=== PATIENT | male | born 1975 | race Caucasian/White ===

== ENCOUNTER 2024-07-15 00:30 | Emergency (ER) | payer BC, SELFPAY ==
[2024-07-15 00:33] VITALS: BP 158/125
[2024-07-15 00:49] VITALS: BMI 35.0
--- NOTE | 2024-07-15 01:30 | ED.SKININJ ---
HPI-Injury
General
Chief Complaint: Skin Surface Trauma
Source: patient and family
Exam Limitations: none
Time Seen by Provider: 07/15/24 01:07
Nursing documentation reviewed up to this point in time: agreed with
History of Present Illness-Injury
Initial Injury comments:
48-year-old male cut his left ring finger on a mandolin while cutting cucumbers tonight. No other injuries sustained. Last tetanus is unknown
Past History
Past History
ED Past Medical History: Cancer (appendix), GERD, Hypercholesterolemia, Other (disc herniation) and Other (nephrolithiasis)
ED Past Surgical History: Appendectomy, Bowel resection, Orthopedic and Other
Social History
Tobacco: Smoker
Alcohol: None
Drug: Marijuana
Personal:
Living: with family
Employment: Employed
Family History
Family History: Other (Sr. with congenital heart disease brother with a pacemaker)
Skin Exam
Avulsion
Left Fourth Finger:
Type of avulsion injury: superfical
Any active bleeding?: low grade venous oozing
Distal skin color and temperature: normal-warm & good color
Normal distal neurovascular exam: Yes
Phy Exam
General Physical Exam
General Presentation: well appearing and no apparent distress
Pulmonary Exam
Pulmonary Exam: no respiratory distress
Neurological Exam
Neurological Exam: alert and oriented x3
Skin Exam
Skin Exam: normal color, warm/dry and other (Flap avulsion to the distal point of the left ring finger. No sutures necessary as flap is missing)
Psychiatric Exam
Psychiatric Exam: normal mood/affect
Course
Orders/Labs/Results
Orders:
Orders
07/15/24 01:27
Tetanus/Diphth/Acelpertussis [Adacel] 0.5 ml IM .ONCE ONE
Vital Signs
Initial and Last Documented VS:
Initial Vital Signs
Temp Pulse Resp BP Pulse Ox
98.0 F 105 17 158/125 100
07/15/24 00:33 07/15/24 00:33 07/15/24 00:33 07/15/24 00:33 07/15/24 00:33
Last Documented Vital Signs
Temp Pulse Resp BP Pulse Ox
98.0 F 105 17 158/125 100
07/15/24 00:33 07/15/24 00:33 07/15/24 00:33 07/15/24 00:33 07/15/24 00:33
*Critical Care Note
Total Time (30-74mins, 75-104mins- exclusive of procedures): Not Applicable
ED Attending Note
-
Portions of this chart may have been created with voice recognition software.� Occasional wrong word or��sound alike� substitutions may have occurred due to the inherent limitations of voice recognition software.
Discharge Plan
Departure
Patient Disposition: Home (Routine Discharge)
Date of Disposition: 07/15/24
Time of Disposition: 01:36
Patient with high blood pressure during this ER visit?: Yes
Condition: Good
Discharge Problem:
Superficial avulsion
Instructions: Wound Care ED, BLOOD PRESSURE, Steri-Strips over Glued Wound
Prescriptions:
No Action
No Current Medications
0
Referrals:
Moose Tovar, [Family Provider] -
Activity Restrictions/Additional Instructions:
Your tetanus status was updated this evening
It was a pleasure meeting you and taking part in your care. We hope for your continued healing and wellness.
Please read discharge instructions in their entirety. However, they are for general education and may not describe your exact diagnosis at discharge. Information on your ER visit and medical conditions were discussed with you along with appropriate
follow up information...
If indicated, please take your medications as instructed and indicated on discharge paperwork.
Please schedule a follow up appointment as directed. Call to schedule an appointment
Please return to the emergency department with ANY change in, persisting, or worsening of symptoms. If any of your symptoms do not improve, or persist, or become more severe within 6-12 hours, please return to the emergency department for further
care.
Please return to the emergency department if you develop a headache, neck pain/stiffness, fever greater than 100.4F, chest pain, shortness of breath, persistent nausea, vomiting, slurred speech, difficulty walking, numbness/tingling, weakness, signs
of infection or any other symptoms that are worrisome to you.
If you have any questions or concerns please do not hesitate to call the Hospital at or E-mail me directly at [email or web address]
Interventions
Interventions:
*Risk Screen - Suicide Last Done: 07/15/24 00:33
*General Assessment Last Done: 07/15/24 00:33
*Neglect/Abuse Screening Last Done: 07/15/24 00:33
ED- Fall Risk Assessment Last Done: 07/15/24 00:52
*ED COVID-19 Vaccine History Last Done: 07/15/24 00:33
ED-Skin Assessment Last Done: 07/15/24 00:52
Discharge Date and Time
Print Language: FRISIAN
[2024-07-15] MEDS: ADACEL 0.5 ML IM (01:46)
[2024-07-15 01:50] VITALS: BP 136/80
== END 2024-07-15 02:03 | disposition home or self-care (01) ==
LOC: EMR 00:30
PROVIDERS: EMERGENCY PHYSICIAN Student in an Organized Health Care Education/Training Program; FAMILY PHYSICIAN Internal Medicine
DX: S61.215A Laceration without foreign body of left ring finger without damage to nail, initial encounter (principal); W27.4XXA Contact with kitchen utensil, initial encounter; Z23 Encounter for immunization; K21.9 Gastro-esophageal reflux disease without esophagitis; E78.00 Pure hypercholesterolemia, unspecified; F17.200 Nicotine dependence, unspecified, uncomplicated; Z87.442 Personal history of urinary calculi; Z90.49 Acquired absence of other specified parts of digestive tract
CPT/HCPCS: 99282; 90471; 90715